=== PATIENT | female | born 1935 | race Caucasian/White ===

== ENCOUNTER → 2021-05-07 | Outpatient (CLI) | payer MEDICARE, BC ==
[~2021-05-07] MED LIST: AMLO-212 PO; BACL10TA PO; CELE200C PO; ESTR0.5T PO; FAMO20TA8 PO; HYDR-894 PO; HYDR1DIS2 IV; HYDR25TA4 PO; LEVO25TA9 PO; MIRA50TA PO; POTA10CA43 PO; TEMA15CA PO
== END | disposition home or self-care (01) ==
LOC: LAB 08:12
PROVIDERS: ATTEND Orthopaedic Surgery Sports Medicine
DX: Z01.812 Encounter for preprocedural laboratory examination (principal); Z20.822 Contact with and (suspected) exposure to COVID-19

== ENCOUNTER 2021-05-10 10:03 | Inpatient (IN) | payer MEDICARE, BC ==
[~2021-05-10] VITALS: Ht 157.5 cm; Wt 67.6 kg
[2021-05-10] MEDS ORDERED: VANCOMYCIN 1000 MG VIAL ONE (11:14)
[2021-05-10] MEDS ORDERED: FENTANYL CITRATE 100 MCG/2 ML AMPUL ONE ×2 (11:41→14:44)
[2021-05-10] MEDS ORDERED: HYDROMORPHONE 2 MG/1 ML DISP.SYRIN ONE (11:59)
[2021-05-10] MEDS ORDERED: BACL10TA PO (14:48)
[2021-05-10] MEDS ORDERED: ESTR0.5T PO (14:48)
[2021-05-10] MEDS ORDERED: POTA10CA43 PO (14:48)
[2021-05-10] MEDS ORDERED: LEVO25TA9 PO (14:48)
[2021-05-10] MEDS ORDERED: HYDR25TA4 PO (14:48)
[2021-05-10] MEDS ORDERED: CELE200C PO (14:48)
[2021-05-10] MEDS ORDERED: FAMO20TA8 PO (14:48)
[2021-05-10] MEDS ORDERED: MIRA50TA PO (14:48)
[2021-05-10] MEDS ORDERED: TEMA15CA PO (14:48)
[2021-05-10] MEDS ORDERED: LABETALOL HCL 100 MG/20 ML VIAL ONE (15:03)
[2021-05-10] MEDS ORDERED: hydrALAZINE HCL 20 MG/1 ML VIAL ONE (15:33)
[2021-05-10] MEDS ORDERED: MORPHINE SULFATE 4 MG/1 ML DISP.SYRIN IV PRN (17:15)
[2021-05-10] MEDS: POTASSIUM CHLORIDE 20 MEQ in IV D5 1/2 NS 1000 ML 1,000 ML IV PRN (17:39)
[2021-05-10 18:21] VITALS: BP 157/65
[2021-05-10] MEDS: CEFAZOLIN 1 G in IV DEXTROSE 5% 50 ML IV SCH (19:37)
[2021-05-10] MEDS: ONDANSETRON 4 MG/2 ML VIAL IV PRN (19:58)
[2021-05-10] MEDS: HYDROMORPHONE 1 MG/1 ML DISP.SYRIN IV PRN (20:56)
[2021-05-10] MEDS ORDERED: TEMAZEPAM 15 MG CAPSULE PO PRN (23:30)
[2021-05-11] MEDS: HYDROMORPHONE 1 MG/1 ML DISP.SYRIN IV PRN ×4 (01:51→21:56)
[2021-05-11] MEDS: CEFAZOLIN 1 G in IV DEXTROSE 5% 50 ML IV SCH (04:34)
[2021-05-11] MEDS ORDERED: hydrALAZINE HCL 25 MG TABLET PO PRN (05:00)
[2021-05-11] MEDS ORDERED: hydrALAZINE HCL 25 MG TABLET ONE (05:17)
[2021-05-11] MEDS: ONDANSETRON 4 MG/2 ML VIAL IV PRN ×2 (06:26→16:19)
[2021-05-11] MEDS: LEVOTHYROXINE SODIUM 25 MCG TABLET PO SCH (06:26)
[2021-05-11] MEDS: POTASSIUM CHLORIDE 20 MEQ in IV D5 1/2 NS 1000 ML 1,000 ML IV PRN ×2 (07:17→21:24)
[2021-05-11] MEDS: FAMOTIDINE 20 MG TABLET PO SCH (08:53)
[2021-05-11] MEDS: ASPIRIN EC 325 MG TABLET.DR PO SCH (08:53)
[2021-05-11] MEDS: CELECOXIB 200 MG CAPSULE PO SCH (08:53)
[2021-05-11] MEDS: BACLOFEN 10 MG TABLET PO SCH (08:53)
[2021-05-11] MEDS: AMLODIPINE 5 MG TABLET PO SCH (08:54)
[2021-05-11] MEDS ORDERED: HYDROCHLOROTHIAZIDE 25 MG TABLET PO SCH (09:00)
[2021-05-11] MEDS ORDERED: POTASSIUM CHLORIDE 10 MEQ TAB.PRT.SR PO SCH (09:00)
[2021-05-11] MEDS: ESTRADIOL 1 MG TABLET PO SCH (09:29)
[2021-05-11 12:00] VITALS: BP 156/49
[2021-05-11 16:00] VITALS: BP 147/52
[2021-05-11 20:54] VITALS: BP 132/42
[2021-05-12 04:31] VITALS: BP 125/60
[2021-05-12] MEDS: HYDROMORPHONE 1 MG/1 ML DISP.SYRIN IV PRN ×2 (06:03→13:25)
[2021-05-12] MEDS: LEVOTHYROXINE SODIUM 25 MCG TABLET PO SCH (06:25)
[2021-05-12 07:22] LABS: HEMATOCRIT 34.9 % (31.2-41.9); MEAN CORPUSCULAR HEMOGLOBIN 28.8 uug (24.7-32.8); MEAN CORPUSCULAR VOLUME 87.3 fL (75.5-95.3); PLATELET COUNT (AUTO) 175 K/uL (179-408)
[2021-05-12 07:52] LABS: THYROID STIMULATING HORMONE 1.407 mIU/mL (0.358-3.740)
[2021-05-12 07:58] LABS: BILIRUBIN,TOTAL 0.4 mg/dL (0.2-1.0); CREATININE 0.6 mg/dL (0.6-1.3); MAGNESIUM 2.3 mg/dL (1.8-2.4); PHOSPHOROUS 1.6 mg/dL (2.5-4.9); POTASSIUM 3.4 mmol/L (3.5-5.1); TOTAL PROTEIN, SERUM 5.8 g/dL (6.4-8.2)
[2021-05-12] MEDS: CELECOXIB 200 MG CAPSULE PO SCH (08:31)
[2021-05-12] MEDS: FAMOTIDINE 20 MG TABLET PO SCH (08:32)
[2021-05-12] MEDS: ASPIRIN EC 325 MG TABLET.DR PO SCH (08:32)
[2021-05-12] MEDS: AMLODIPINE 5 MG TABLET PO SCH (08:32)
[2021-05-12] MEDS: BACLOFEN 10 MG TABLET PO SCH (08:32)
[2021-05-12] MEDS ORDERED: POTASSIUM CHLORIDE 20 MEQ TAB.PRT.SR PO ONE (08:45)
[2021-05-12] MEDS: ESTRADIOL 1 MG TABLET PO SCH (09:26)
[2021-05-12] MEDS: ONDANSETRON 4 MG/2 ML VIAL IV PRN (09:58)
[2021-05-12 11:39] VITALS: BP 147/66
[2021-05-12] MEDS: POTASSIUM CHLORIDE 20 MEQ in IV D5 1/2 NS 1000 ML 1,000 ML IV PRN (14:10)
[2021-05-12] MEDS ORDERED: HYDR1DIS2 IV (14:14)
[2021-05-12] MEDS ORDERED: AMLO-212 PO (14:14)
[2021-05-12] MEDS ORDERED: HYDR-894 PO (14:14)
[2021-05-12] MEDS ORDERED: NEUTRA PHOS PACKET PO ONE (14:15)
[2021-05-12 15:30] VITALS: BP 142/59
[2021-05-12] MEDS ORDERED: SEVOFLURANE 250 ML BOTTLE IH ONE (18:33)
[2021-05-12] MEDS ORDERED: CEFAZOLIN 1 G VIAL IM ONE (18:33)
[2021-05-12] MEDS ORDERED: GLYCOPYRROLATE 0.2 MG/ML VIAL IJ ONE (18:33)
[2021-05-12] MEDS ORDERED: LIDOCAINE-MPF 2% 5 ML VIAL IJ ONE (18:33)
[2021-05-12] MEDS ORDERED: KETOROLAC TROMETHAMINE 30 MG INJ IM ONE (18:33)
[2021-05-12] MEDS ORDERED: PROPOFOL 200 MG/20 ML BOTTLE IV ONE (18:33)
[2021-05-12] MEDS ORDERED: ONDANSETRON 4 MG/2 ML VIAL IV ONE (18:33)
[2021-05-12] MEDS ORDERED: DEXAMETHASONE SOD PHOSPHATE 4 MG INJ IV ONE (18:33)
== END 2021-05-12 18:34 | DRG 470 ==
LOC: DS 10:03 → MEDSURG3 14:00
PROVIDERS: ADMIT Internal Medicine; ATTEND Orthopaedic Surgery Sports Medicine
PROC: 0SRD069 Replacement of Left Knee Joint with Oxidized Zirconium on Polyethylene Synthetic Substitute, Cemented, Open Approach (ICD-10-PCS; principal; 2021-05-10)
DX: M17.12 Unilateral primary osteoarthritis, left knee (principal); D68.59 Other primary thrombophilia; I10 Essential (primary) hypertension; Z20.822 Contact with and (suspected) exposure to COVID-19; D69.6 Thrombocytopenia, unspecified; E03.9 Hypothyroidism, unspecified; E83.39 Other disorders of phosphorus metabolism; E87.6 Hypokalemia; Z90.710 Acquired absence of both cervix and uterus; Z88.5 Allergy status to narcotic agent; Z88.8 Allergy status to other drugs, medicaments and biological substances; I25.10 Atherosclerotic heart disease of native coronary artery without angina pectoris; E66.3 Overweight; Z68.27 Body mass index [BMI] 27.0-27.9, adult; K21.9 Gastro-esophageal reflux disease without esophagitis
CPT/HCPCS: 36415; 71045; 83735; 84100; 84443; 85025; 86850; 86900; 86901; 97161; A4217; A4663; A6209; C1713; C1776; G0378; J0360; J0690; J1100; J1170; J1885; J2405; J3010; J3370; J3480; J3490; J7060; J7120

== ENCOUNTER 2021-05-12 12:54 | Inpatient (IN) | payer MEDICARE, BC ==
[~2021-05-12] VITALS: Ht 157.5 cm; Wt 67.6 kg
[~2021-05-12 12:54] MED LIST changes: -AMLO-212 PO; -HYDR-894 PO; -HYDR1DIS2 IV
[2021-05-12] MEDS ORDERED: HYDR-894 PO (14:14)
[2021-05-12] MEDS ORDERED: AMLO-212 PO (14:14)
[2021-05-12] MEDS ORDERED: HYDR1DIS2 IV (14:14)
[2021-05-12] MEDS ORDERED: REMEDY ESSENTIAL ZINC PASTE 113 GM TOP PRN (16:45)
[2021-05-12] MEDS ORDERED: hydrALAZINE HCL 25 MG TABLET PO PRN (18:30)
[2021-05-12] MEDS ORDERED: HYDROMORPHONE 1 MG/1 ML DISP.SYRIN IV PRN (18:30)
[2021-05-12 20:00] VITALS: BP 150/51
[2021-05-12] MEDS ORDERED: ONDANSETRON 4 MG/2 ML VIAL IV PRN ×2 (21:30→21:45)
[2021-05-12] MEDS ORDERED: ONDANSETRON HCL 4 MG TABLET PO PRN (21:30)
[2021-05-12] MEDS: TEMAZEPAM 15 MG CAPSULE PO PRN (21:56)
[2021-05-13 04:00] VITALS: BP 129/52
--- NOTE | 2021-05-13 06:00 | NUR ---
Slept throughout the night. Denies pain at this time. Able to make needs known. IV site intact. No distress noted. Will endorse to day shift.
[2021-05-13] MEDS: LEVOTHYROXINE SODIUM 25 MCG TABLET PO SCH (06:39)
[2021-05-13 07:59] VITALS: BP 107/65
[2021-05-13] MEDS: CELECOXIB 200 MG CAPSULE PO SCH (08:26)
[2021-05-13] MEDS: FAMOTIDINE 20 MG TABLET PO SCH (08:28)
[2021-05-13] MEDS: POTASSIUM CHLORIDE 10 MEQ TAB.PRT.SR PO SCH (08:28)
[2021-05-13] MEDS: ESTRADIOL 1 MG TABLET PO SCH (08:29)
[2021-05-13] MEDS: AMLODIPINE 5 MG TABLET PO SCH (08:30)
[2021-05-13] MEDS: HYDROCHLOROTHIAZIDE 25 MG TABLET PO SCH (08:30)
[2021-05-13] MEDS: BACLOFEN 10 MG TABLET PO SCH (08:33)
[2021-05-13] MEDS ORDERED: [UNRECOGNIZED DRUG - OTHER] PO ONE (09:00)
[2021-05-13] MEDS ORDERED: [UNRECOGNIZED DRUG - OTHER] PO SCH (09:00)
[2021-05-13] MEDS ORDERED: Medication Not On Formulary EA (Estradiol 0.5 MG) PO SCH (09:00)
[2021-05-13] MEDS ORDERED: MYRBETRIQ 50 MG PO ONE (09:00)
[2021-05-13] MEDS ORDERED: Medication Not On Formulary EA (Mirabegron (Myrbetriq) 50 MG) PO SCH (09:00)
[2021-05-13] MEDS ORDERED: MYRBETRIQ 50 MG PO SCH (09:00)
--- NOTE | 2021-05-13 09:15 | NUR ---
received patient resting in bed alert, oriented x 4, not in any form of distress, on room air. 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 Assisted patient with bed gomez voiding well, on CPM machine at 60 degree flexion as order. She participated with therapy as tolerated.
[2021-05-13] MEDS: OXYCODONE HCL 5 MG TABLET PO PRN ×2 (12:12→20:24)
[2021-05-13 15:43] VITALS: BP 125/51
[2021-05-13 20:00] VITALS: BP 147/57
[2021-05-13] MEDS: TEMAZEPAM 15 MG CAPSULE PO PRN (22:12)
[2021-05-14 04:00] VITALS: BP 140/59
--- NOTE | 2021-05-14 05:49 | NUR ---
Slept throughout the night. Denies pain or SOB at this time. Able to make needs known. Able to ambulate with FWW and get up with assist. IV site intact. Will endorse to day shift.
[2021-05-14] MEDS: LEVOTHYROXINE SODIUM 25 MCG TABLET PO SCH ×2 (06:16→06:18)
[2021-05-14 07:59] VITALS: BP 103/61
[2021-05-14] MEDS: AMLODIPINE 5 MG TABLET PO SCH (08:43)
[2021-05-14] MEDS: CELECOXIB 200 MG CAPSULE PO SCH (08:43)
[2021-05-14 08:44] VITALS: BP 103/61
[2021-05-14] MEDS: FAMOTIDINE 20 MG TABLET PO SCH (08:44)
[2021-05-14] MEDS: POTASSIUM CHLORIDE 10 MEQ TAB.PRT.SR PO SCH (08:44)
[2021-05-14] MEDS: BACLOFEN 10 MG TABLET PO SCH (08:44)
[2021-05-14] MEDS: HYDROCHLOROTHIAZIDE 25 MG TABLET PO SCH (08:44)
[2021-05-14] MEDS: OXYCODONE HCL 5 MG TABLET PO PRN (08:44)
[2021-05-14] MEDS: ESTRADIOL 1 MG TABLET PO SCH (08:45)
--- NOTE | 2021-05-14 11:08 | NUR ---
INDIVIDUALIZED PLAN OF CARE
--- NOTE | 2021-05-14 15:45 | NUR ---
DISCHARGED PATIENT VIA PRIVATE CAR WITH THE WITH STABLE CONDITION. VS WNL. NO DISTRESS IDENTIFIED. SKIN INTACT, INCISION SITE WITH STERISTRIPS PHOTO TAKEN IN CHART. DC INSTRUCTIONS GIVEN AND SIGNED. BELONG LIST SIGNED AND WITH THE PATIENT. NO CONCERNS IDENTIFIED PRIOR TO DC.
== END 2021-05-14 15:45 | disposition home or self-care (01) | DRG 560 ==
LOC: MEDSURG3 17:27
PROVIDERS: ADMIT Physical Medicine & Rehabilitation Pain Medicine; ATTEND Physical Medicine & Rehabilitation Pain Medicine
DX: Z47.1 Aftercare following joint replacement surgery (principal); D68.59 Other primary thrombophilia; M17.12 Unilateral primary osteoarthritis, left knee; I10 Essential (primary) hypertension; E03.9 Hypothyroidism, unspecified; D69.6 Thrombocytopenia, unspecified; Z79.82 Long term (current) use of aspirin; Z90.710 Acquired absence of both cervix and uterus; M51.36 Other intervertebral disc degeneration, lumbar region; Z96.652 Presence of left artificial knee joint; E66.3 Overweight; Z68.27 Body mass index [BMI] 27.0-27.9, adult; K21.9 Gastro-esophageal reflux disease without esophagitis
CPT/HCPCS: 97161; Q0162